=== PATIENT | female | born 1960 | race Caucasian/White ===

== ENCOUNTER → 2025-04-16 10:12 | Outpatient (REF) | payer OTHER, SELFPAY ==
[2025-04-16 12:55] LABS: Blood Urea Nitrogen 14 mg/dl (7-17)
== END ==
LOC: HWLAB 10:12
PROVIDERS: ATTENDING PHYSICIAN Otolaryngology; FAMILY PHYSICIAN Family Medicine
DX: Z01.818 Encounter for other preprocedural examination (principal)
CPT/HCPCS: 36415; 82565; 84520

== ENCOUNTER → 2025-04-21 07:48 | Outpatient (REF) | payer OTHER, SELFPAY | LOC: PAVMRI 07:48 | PROVIDERS: ATTENDING PHYSICIAN Otolaryngology; FAMILY PHYSICIAN Family Medicine | DX: H90.A31 Mixed conductive and sensorineural hearing loss, unilateral, right ear with restricted hearing on the contralateral side (principal) | CPT/HCPCS: 70553; A9575 ==